=== PATIENT | female | born 1955 | race Caucasian/White ===

== ENCOUNTER 2022-11-29 14:04 | Emergency (ER) | payer MEDICARE, MEDICAID, SELFPAY ==
[2022-11-29 14:09] VITALS: BP 148/93; PULSE 86; RESP 18; TEMP 37.1; O2SAT 100; BMI 17.9
[2022-11-29 15:02] VITALS: BP 142/88; PULSE 84; RESP 18; O2SAT 100
[2022-11-29 15:20] VITALS: BP 151/81; PULSE 86; RESP 18; O2SAT 100
[2022-11-29 15:32] LABS: Basophils Percent Auto 0.5 % (0.2-2.0); Eosinophils Absolute Auto 0.1 10^3/uL (0.0-0.7); Eosinophils Percent Auto 1.1 % (0.9-7.0); Hemoglobin 12.3 g/dL (12.0-16.0); Immature Granulocytes Abs Auto 0.02 10^3/uL (0.00-0.03); Immature Granulocytes Pct Auto 0.4 % (0.0-0.5); Lymphocytes Absolute Auto 0.9 10^3/uL (1.2-3.8); Lymphocytes Percent Auto 16.2 % (20.5-60.0); Mean Corpuscular HGB Conc 33.2 g/dL (29.9-35.2); Mean Corpuscular Hemoglobin 29.4 pg (26.7-34.0); Mean Corpuscular Volume 88.3 fL (81.0-99.0); Monocytes Absolute Auto 0.7 10^3/uL (0.3-0.8); Monocytes Percent Auto 12.2 % (1.7-12.0); Neutrophils Absolute Auto 3.8 10^3/uL (1.4-6.5); Neutrophils Percent Auto 69.6 % (43.0-75.0); Platelet Count 255 10^3/uL (150-450); Red Blood Count 4.19 10^6/uL (4.20-5.40); Red Cell Distribution Width 14.4 % (11.0-15.0); White Blood Count 5.5 10^3/uL (4.0-11.0)
[2022-11-29 15:45] LABS: Alanine Aminotransferase 8 U/L (14-59); Albumin Globulin Ratio 1.2; Albumin Level 3.5 g/dL (3.4-5.0); Alkaline Phosphatase 80 U/L (46-116); Anion Gap 12.1; Aspartate Amino Transferase 20 U/L (15-37); BUN Creatinine Ratio 16.7; Bilirubin Total 0.4 mg/dL (0.2-1.0); Calcium 8.7 mg/dL (8.5-10.1); Carbon Dioxide 26.9 mmol/L (21.0-32.0); Chloride 102 mmol/L (98-107); Estimated GFR (African America >60 (>=60); Estimated GFR (Non-African Ame >60 (>=60); Glucose 67 mg/dL (74-106); Sodium 137 mmol/L (136-145); Total Protein 6.5 g/dL (6.4-8.2)
--- NOTE | 2022-11-29 16:09 | ED.URI1 ---
HPI - URI/Sore Throat General Chief Complaint: Upper Respiratory Infection Stated Complaint: SORE THROAT/ HEADACHE Time Seen by Provider: 11/29/22 15:04 Source: patient Limitations: no limitations History of Present Illness HPI Narrative: Presenting to us with symptoms of possible chronic sinusitis she has been going to multiple doctors since October when she was diagnosed with COVID-19 and apparently she was treated for possible strep throat as well with antibiotic and there was one of the visit that she was treated with Decadron today she is presenting to us with generalized sense of fatigue and her continuous symptoms of congestion of her nasal passages Related Data Allergies Allergy/AdvReac Type Severity Reaction Status Date / Time sulfamethoxazole AdvReac Intermediate Verified 11/29/22 14:09 [From Bactrim] trimethoprim [From Bactrim] AdvReac Intermediate Verified 11/29/22 14:09 Review of Systems ROS Status of ROS 10 or more systems reviewed and unremarkable except as noted in history and below PFSH PFSH Social History Smoking status: Former smoker Exam Narrative Exam Narrative: Nurses notes and vital signs reviewed and patient is not hypoxic. General: Well-appearing and in no apparent distress. Skin: Warm, dry, no pallor noted. No rash. Head: Normocephalic, atraumatic. Neck: Supple, non-tender. Eye: Pupils are equal, round and EOMI. No scleral icterus. Ears, Nose, Mouth, and Throat: TM are clear, no nasal mucosal hypertrophy. Oral mucosa is moist, no posterior oropharynx erythema, uvula is mid-line, the patient nasal passages shows chronic thinning and chronic inflammation with no pus no tenderness no signs of active infection Cardiovascular: Regular Rate and Rhythm without murmur, gallop or rub. Respiratory: No accessory muscle use or respiratory distress. Lungs are clear to auscultation, no wheezing, rales or rhonchi Chest Wall: no tenderness Back: No midline thoracic or lumbar vertebral tenderness. No CVA tenderness Musculoskeletal: normal ROM, no calf or popliteal tenderness, no lower extremity edema/swelling GI: Abdomen is soft, non-distended. Normal bowel sounds. No masses appreciated. No tenderness to palpation. No rebound, guarding, or rigidity noted. Neurological: A&O x4. No cranial nerve dysfunction observed. No truncal ataxia. Moves all extremities. Sensation intact. Psychiatric: Cooperative and interactive. Normal mood and affect. Constitutional Vital Signs, click to edit/add: Last Vital Signs Temp 98.7 F 11/29/22 14:09 Pulse 86 11/29/22 15:20 Resp 18 11/29/22 15:20 BP 151/81 H 11/29/22 15:20 Pulse Ox 100 11/29/22 15:20 O2 Del Method Room Air 11/29/22 15:20 Course Vital Signs Vital signs: Vital Signs Temperature 98.7 F 11/29/22 14:09 Pulse Rate 86 11/29/22 14:09 Respiratory Rate 18 11/29/22 14:09 Blood Pressure 148/93 H 11/29/22 14:09 Pulse Oximetry 100 11/29/22 14:09 Oxygen Delivery Method Room Air 11/29/22 14:09 Temperature 98.7 F 11/29/22 14:09 Pulse Rate 86 11/29/22 15:20 Respiratory Rate 18 11/29/22 15:20 Blood Pressure 151/81 H 11/29/22 15:20 Pulse Oximetry 100 11/29/22 15:20 Oxygen Delivery Method Room Air 11/29/22 15:20 MDM - URI/Sore Throat MDM Narrative Medical decision making narrative: The patient CBC and chemistry showed no acute significant pathology except for mild hyperglycemia which is mostly secondary to the fact that the patient did not eat today She was provided with juice and the blood sugar will be measured before discharge to make sure that she is getting better but the patient was instructed about the importance of follow-up with the ENT which she have an appointment with in few days The patient is to follow up with primary care physician in next 2-3 days or to return to the emergency department should any of the signs or symptoms worsen or new symptoms develop. The patient agrees with the following Diagnosis and Treatment plan and the patient will be discharged home. Lab Data Labs: Lab Results 11/29/22 Range/Units 15:25 WBC 5.5 (4.0-11.0) 10^3/uL RBC 4.19 L (4.20-5.40) 10^6/uL Hgb 12.3 (12.0-16.0) g/dL Hct 37.0 (36.0-48.0) % MCV 88.3 (81.0-99.0) fL MCH 29.4 (26.7-34.0) pg MCHC 33.2 (29.9-35.2) g/dL RDW 14.4 (11.0-15.0) % Plt Count 255 (150-450) 10^3/uL MPV 9.0 L (9.5-13.5) fL Neut % (Auto) 69.6 (43.0-75.0) % Lymph % (Auto) 16.2 L (20.5-60.0) % Ceiba % (Auto) 12.2 H (1.7-12.0) % Eos % (Auto) 1.1 (0.9-7.0) % Baso % (Auto) 0.5 (0.2-2.0) % Neut # (Auto) 3.8 (1.4-6.5) 10^3/uL Lymph # (Auto) 0.9 L (1.2-3.8) 10^3/uL Ceiba # (Auto) 0.7 (0.3-0.8) 10^3/uL Eos # (Auto) 0.1 (0.0-0.7) 10^3/uL Baso # (Auto) 0.0 (0.0-0.1) 10^3/uL Abs Immat Gran (auto) 0.02 (0.00-0.03) 10^3/uL Imm/Tot Granulo (auto) 0.4 (0.0-0.5) % Sodium 137 (136-145) mmol/L Potassium 4.0 (3.5-5.1) mmol/L Chloride 102 (98-107) mmol/L Carbon Dioxide 26.9 (21.0-32.0) mmol/L Anion Gap 12.1 BUN 13.0 (7.0-18.0) mg/dL Creatinine 0.78 (0.55-1.02) mg/dL Est GFR ( Amer) >60 (>=60) Est GFR (Non-Af Amer) >60 (>=60) BUN/Creatinine Ratio 16.7 Glucose 67 L (74-106) mg/dL Calcium 8.7 (8.5-10.1) mg/dL Total Bilirubin 0.4 (0.2-1.0) mg/dL AST 20 (15-37) U/L ALT 8 L (14-59) U/L Alkaline Phosphatase 80 (46-116) U/L Total Protein 6.5 (6.4-8.2) g/dL Albumin 3.5 (3.4-5.0) g/dL Globulin 3.0 g/dL Albumin/Globulin Ratio 1.2 Discharge Plan Discharge Chief Complaint: Upper Respiratory Infection Clinical Impression: Chronic recurrent sinusitis Patient Disposition: Home, Self-Care Time of Disposition Decision: 16:09 Condition: Good Mode of Transportation: Private Vehicle Instructions: Sinusitis (ED) Stand Alone Forms: Portal Instructions Referrals: Physician,Non-Staff, MD [Primary Care Provider] - 1 week
[2022-11-29 16:14] VITALS: BP 140/80; PULSE 82; RESP 18; O2SAT 100
[2022-11-29 16:16] LABS: Glucometer 140 mg/dL (74-106)
== END 2022-11-29 16:17 | disposition home or self-care (01) ==
PROVIDERS: Emergency Provider Emergency Medicine
DX: J32.9 Chronic sinusitis, unspecified (principal); E16.2 Hypoglycemia, unspecified; Z87.891 Personal history of nicotine dependence; Z86.16 Personal history of COVID-19
CPT/HCPCS: 36415; 80053; 85025; 99283